=== PATIENT | female | born 1960 ===

== ENCOUNTER → 2018-10-10 | Outpatient (CLI) | payer OTHER ==
[~2018-10-10] MED LIST: NEXIUM; PRISTIQ; TENORETIC
== END | disposition home or self-care (01) ==
LOC: NUCLEAR 10:00
DX: D86.89 Sarcoidosis of other sites (principal)
CPT/HCPCS: 78802; A9541

== ENCOUNTER 2021-08-17 08:28 | Outpatient (CLI) | payer OTHER | END 2021-08-17 09:27 | disposition home or self-care (01) | LOC: SONOGRAMA 08:28 | PROVIDERS: ATTEND Pathology Anatomic Pathology & Clinical Pathology | DX: E04.1 Nontoxic single thyroid nodule (principal) ==